=== PATIENT | female | born 1975 | race Asian ===

== ENCOUNTER → 2024-07-19 | Outpatient (CLI) | payer BC ==
[2024-07-19 08:47] LABS: BASOPHILS % 0.9 % (0.0-2.0); EOSINOPHILS % 4.2 % (0.0-5.0); HEMATOCRIT. 40.9 % (36.0-48.0); HEMOGLOBIN. 14.4 g/dL (12.0-16.0); LYMPHOCYTES % 33.1 % (20.0-50.0); MEAN CORPUSCULAR HEMOGLOBIN 31.7 pg (28.0-32.0); MEAN CORPUSCULAR HGB CONC 35.1 g/dL (31.0-37.0); MEAN CORPUSCULAR VOLUME 90.3 fL (81.0-99.0); MEAN PLATELET VOLUME 8.2 fl (7.4-10.4); MONOCYTES % 6.5 % (2.0-8.0); NEUTROPHILS % 55.3 % (40.0-76.0); PLATELET 213 x1000/uL (130-400); RED BLOOD CELL COUNT 4.53 mill/uL (4.2-5.4); RED CELL DISTRIBUTION WIDTH 13.7 % (11.6-14.6); WHITE BLOOD COUNT 6.2 x1000/uL (4.5-11.0)
[2024-07-19 09:01] LABS: CHLORIDE 100 mEq/L (98-107); POTASSIUM 3.8 mEq/L (3.5-5.1); SODIUM 139 mEq/L (136-145)
[2024-07-19 09:04] LABS: CALCIUM 9.6 mg/dL (8.7-10.4); CARBON DIOXIDE 31 mEq/L (21-32)
[2024-07-19 09:05] LABS: CLARITY URINE CLOUDY (CLEAR); COLOR URINE RED (YELLOW); GLUCOSE URINE NEGATIVE (NEGATIVE); KETONES URINE NEGATIVE (NEGATIVE); LEUKOCYTE ESTERASE URINE TRACE (NEGATIVE); NITRITE URINE NEGATIVE (NEGATIVE); OCCULT BLOOD URINE 3+ (NEGATIVE); PROTEIN URINE TRACE (NEGATIVE); SPECIFIC GRAVITY URINE 1.024 (1.005-1.030); UROBILINOGEN URINE 0.2 E.U./dL (0.2-1.0)
[2024-07-19 09:09] LABS: ALANINE AMINOTRANSFERASE 26 IU/L (10-49); CREATININE 0.7 mg/dL (0.6-1.0); GLUCOSE 132 mg/dL (70-105); TRIGLYCERIDE 78 mg/dL (0-150); UREA NITROGEN BLOOD 11 mg/dL (9-23)
[2024-07-19 09:10] LABS: ALBUMIN 4.8 g/dL (3.2-4.8); ASPARTATE AMINOTRANSFERASE 19 IU/L (<34); LDL CHOLESTEROL 81 mg/dL (5-100)
[2024-07-19 09:11] LABS: CHOLESTEROL 172 mg/dL (<200); HDL CHOLESTEROL 64 mg/dL (>65); T4 FREE 1.56 ng/dL (0.89-1.76); THYROID STIMULATING HORMONE 1.74 uIU/mL (0.55-4.78)
[2024-07-19 09:45] LABS: BACTERIA URINE FEW; RBC URINE TNTC /hpf (0-2); SQUAMOUS EPITHELIAL CELL URINE FEW /lpf (RARE/1+); WBC URINE 0-2 /hpf (0-2)
[2024-07-19 09:46] LABS: HEPATITIS B SURFACE ANTIGEN NEGATIVE (Negative)
[2024-07-19 10:06] LABS: HEPATITIS A AB IGM NEGATIVE (Negative)
[2024-07-19 10:07] LABS: HEPATITIS B CORE AB IGM NEGATIVE (Negative); HEPATITIS C AB NON REACTIVE (Neg) (Negative)
== END | disposition home or self-care (01) ==
LOC: LAB 07:38
PROVIDERS: ATTEND Internal Medicine Endocrinology, Diabetes & Metabolism
DX: E05.90 Thyrotoxicosis, unspecified without thyrotoxic crisis or storm (principal); R73.9 Hyperglycemia, unspecified
CPT/HCPCS: 36415; 80053; 80061; 80074; 81001; 81003; 82306; 83036; 83520; 84439; 84443; 84481; 85025; 86705; 86709; 87340

== ENCOUNTER → 2024-10-29 | Outpatient (CLI) | payer BC | END | disposition home or self-care (01) | LOC: CARD 06:39 | PROVIDERS: ATTEND Specialist | DX: I08.0 Rheumatic disorders of both mitral and aortic valves (principal); D21.9 Benign neoplasm of connective and other soft tissue, unspecified | CPT/HCPCS: 93306 ==

== ENCOUNTER → 2024-12-10 | Outpatient (CLI) | payer BC ==
[2024-12-10 08:17] LABS: BASOPHILS % 0.6 % (0.0-2.0); EOSINOPHILS % 4.9 % (0.0-5.0); HEMATOCRIT. 39.2 % (36.0-48.0); HEMOGLOBIN. 13.5 g/dL (12.0-16.0); LYMPHOCYTES % 33.5 % (20.0-50.0); MEAN PLATELET VOLUME 7.9 fl (7.4-10.4); MONOCYTES % 6.4 % (2.0-8.0); NEUTROPHILS % 54.6 % (40.0-76.0); PLATELET 188 x1000/uL (130-400); RED BLOOD CELL COUNT 4.44 mill/uL (4.2-5.4); RED CELL DISTRIBUTION WIDTH 13.3 % (11.6-14.6)
[2024-12-10 08:32] LABS: CREATININE 0.8 mg/dL (0.6-1.0)
[2024-12-10 08:33] LABS: LDL CHOLESTEROL 65 mg/dL (5-100); TRIGLYCERIDE 112 mg/dL (0-150); UREA NITROGEN BLOOD 13 mg/dL (9-23)
[2024-12-10 08:34] LABS: ASPARTATE AMINOTRANSFERASE 19 IU/L (<34)
[2024-12-10 08:35] LABS: BILIRUBIN TOTAL 0.6 mg/dL (0.1-1.0); PROTEIN TOTAL 7.5 g/dL (6.0-8.3)
[2024-12-10 08:37] LABS: T4 FREE 1.26 ng/dL (0.89-1.76)
== END | disposition home or self-care (01) ==
LOC: LAB 07:55
PROVIDERS: ATTEND Internal Medicine Endocrinology, Diabetes & Metabolism
DX: I10 Essential (primary) hypertension (principal); E78.00 Pure hypercholesterolemia, unspecified; E03.9 Hypothyroidism, unspecified; R73.9 Hyperglycemia, unspecified
CPT/HCPCS: 36415; 80053; 80061; 83036; 84439; 84443; 84481; 85025

== ENCOUNTER → 2025-01-25 | Outpatient (CLI) | payer BC ==
[2025-01-25 09:07] LABS: UREA NITROGEN BLOOD 13 mg/dL (9-23)
[2025-01-25 09:08] LABS: CREATININE 0.8 mg/dL (0.6-1.0)
[2025-01-25 09:09] LABS: TRIGLYCERIDE 81 mg/dL (0-150)
[2025-01-25 09:10] LABS: ASPARTATE AMINOTRANSFERASE 30 IU/L (<34); LDL CHOLESTEROL 82 mg/dL (5-100); T4 FREE 1.54 ng/dL (0.89-1.76)
[2025-01-25 09:11] LABS: BILIRUBIN TOTAL 0.6 mg/dL (0.1-1.0); PROTEIN TOTAL 7.7 g/dL (6.0-8.3)
== END | disposition home or self-care (01) ==
LOC: LAB 08:04
PROVIDERS: ATTEND Specialist
DX: E11.9 Type 2 diabetes mellitus without complications (principal); E78.2 Mixed hyperlipidemia; E55.9 Vitamin D deficiency, unspecified; D64.9 Anemia, unspecified
CPT/HCPCS: 36415; 80053; 80061; 83036; 83735; 84439; 84443; 84480

== ENCOUNTER → 2025-03-20 | Outpatient (CLI) | payer BC | END | disposition home or self-care (01) | LOC: US 12:41 | PROVIDERS: ATTEND Internal Medicine Endocrinology, Diabetes & Metabolism | DX: E04.2 Nontoxic multinodular goiter (principal); R73.9 Hyperglycemia, unspecified; E78.5 Hyperlipidemia, unspecified; E03.9 Hypothyroidism, unspecified | CPT/HCPCS: 76536; 93880 ==

== ENCOUNTER → 2025-04-24 | Outpatient (CLI) | payer BC ==
[2025-04-24 09:08] LABS: CREATININE 0.7 mg/dL (0.6-1.0); TRIGLYCERIDE 73 mg/dL (0-150); UREA NITROGEN BLOOD 9 mg/dL (9-23)
[2025-04-24 09:09] LABS: LDL CHOLESTEROL 62 mg/dL (5-100); PROTEIN TOTAL 7.7 g/dL (6.0-8.3)
[2025-04-24 09:10] LABS: ASPARTATE AMINOTRANSFERASE 24 IU/L (<34); BILIRUBIN TOTAL 0.7 mg/dL (0.1-1.0)
[2025-04-24 09:12] LABS: T4 FREE 1.57 ng/dL (0.89-1.76)
[2025-04-24 09:29] LABS: BASOPHILS % 0.6 % (0.0-2.0); EOSINOPHILS % 3.4 % (0.0-5.0); HEMATOCRIT. 41.0 % (36.0-48.0); HEMOGLOBIN. 13.6 g/dL (12.0-16.0); LYMPHOCYTES % 34.8 % (20.0-50.0); MEAN PLATELET VOLUME 8.8 fl (7.4-10.4); MONOCYTES % 6.1 % (2.0-8.0); NEUTROPHILS % 55.1 % (40.0-76.0); PLATELET 197 x1000/uL (130-400); RED BLOOD CELL COUNT 4.51 mill/uL (4.2-5.4); RED CELL DISTRIBUTION WIDTH 13.5 % (11.6-14.6)
== END | disposition home or self-care (01) ==
LOC: LAB 07:47
PROVIDERS: ATTEND Specialist
DX: I11.9 Hypertensive heart disease without heart failure (principal); E11.9 Type 2 diabetes mellitus without complications; E78.2 Mixed hyperlipidemia; D64.9 Anemia, unspecified
CPT/HCPCS: 36415; 80053; 80061; 83036; 84439; 84443; 84481; 85025